=== PATIENT | female | born 1990 | race Caucasian/White ===

== ENCOUNTER 2018-06-13 07:14 | Emergency (ER) | payer SELFPAY ==
[~2018-06-13] VITALS: Ht 170.2 cm; Wt 100.0 kg
[2018-06-13] MEDS ORDERED: EPINEPHRINE 0.1MG/ML (1:10,000) 10ML SYR ONE ×2 (07:18→07:34)
[2018-06-13 07:21] VITALS: BP 0/0
== END 2018-06-13 10:14 | disposition expired ==
LOC: ER 07:14
DX: O26.893 Other specified pregnancy related conditions, third trimester (principal); I46.9 Cardiac arrest, cause unspecified; O46.93 Antepartum hemorrhage, unspecified, third trimester; Z3A.00 Weeks of gestation of pregnancy not specified
CPT/HCPCS: 31500; 36680; 76815; 92950; 99291; J3490